=== PATIENT | female | born 1995 | race African-American/Black ===

== ENCOUNTER 2019-04-09 03:36 | Emergency (ER) | payer SELFPAY ==
--- NOTE | 2019-04-09 06:26 | ER Document Report ---
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 Pt is 5 months with first . Pt just arrived in from [place] after an 8 hours car ride. No redness, swelling, heat noted to right calf. Pulses strong and intact, sensation equal bilaterally. Pt able to move feet and toes without difficulty. Pt denies hx of blood clots. Pt reports hx of depression and schizophrenia. Pt ambulatory without difficulty to triage, aaox4, speaks in clear and complete sentences. Great aunt at side. Pt in NAD. MY HPI: Patient is denying any respiratory distress or chest pain. Patient voices she is G1, P0, currently 5 months . Denies abdominal pain, vaginal bleeding or discharge. Denies dysuria. She is noticed some swelling to the right lower extremity and pain in her right calf. States she "googled it" and would like evaluation for a blood clot. - Related Data Allergies/Adverse Reactions: No Known Allergies Allergy (Unverified 04/09/19 04:01) Past Medical History - General Information source: Patient, Relative - Social History Smoking Status: Never Smoker Frequency of alcohol use: None Drug Abuse: None Family History: Reviewed & Not Pertinent Patient has suicidal ideation: No Patient has homicidal ideation: No Review of Systems - Review of Systems Constitutional: denies: Fever EENT: No symptoms reported Cardiovascular: No symptoms reported Respiratory: No symptoms reported Gastrointestinal: No symptoms reported Genitourinary: No symptoms reported Female Genitourinary: No symptoms reported Musculoskeletal: See HPI Skin: See HPI Hematologic/Lymphatic: See HPI Neurological/Psychological: No symptoms reported Physical Exam - Vital signs Vitals: Temp Pulse Resp BP Pulse Ox 97.8 F 86 18 117/70 100 04/09/19 03:55 04/09/19 03:55 04/09/19 03:55 04/09/19 03:55 04/09/19 03:55 - Notes Notes: GENERAL: Alert, interacts well. No acute distress. HEAD: Normocephalic, atraumatic. EYES: Pupils equal, round, and reactive to light. Extraocular movements intact. ENT: Oral mucosa moist, tongue midline. NECK: Full range of motion. Supple. Trachea midline. LUNGS: Clear to auscultation bilaterally, no wheezes, rales, or rhonchi. No respiratory distress. HEART: Regular rate and rhythm. No murmur ABDOMEN: Soft, non-tender. Non-distended. Bowel sounds present in all 4 quadrants. EXTREMITIES: Moves all 4 extremities spontaneously. normal radial and dorsalis pedis pulses bilaterally. No cyanosis. Generalized pain in right calf, pain upon flexion extension of right ankle. Minor swelling noted in right lower extremity compared to left. BACK: no cervical, thoracic, lumbar midline tenderness. No saddle anesthesia, normal distal neurovascular exam. NEUROLOGICAL: Alert and oriented x3. Normal speech. cranial nerves II through XII grossly intact PSYCH: Normal affect, normal mood. SKIN: Warm, dry, normal turgor. Course - Re-evaluation Re-evalutation: 04/09/19 06:24 I discussed with patient and family at bedside my recommendation for venous Doppler. Unfortunately we do not have access to venous Doppler at this time. I discussed with family outpatient orders for venous Doppler or if they would like to stay in the emergency department to get a venous Doppler at approximately 8:00 this morning. Patient voices she would like to stay in the emergency department until the venous Doppler can be performed. Patient was provided with the call light and blankets. Venous Doppler ordered. 04/09/19 07:52 Pt. care and report transferred to Kai Hollingsworth NP at end of shift for venous doppler results. - Vital Signs Vital signs: Temp Pulse Resp BP Pulse Ox 97.8 F 86 18 117/70 100 04/09/19 03:55 04/09/19 03:55 04/09/19 03:55 04/09/19 03:55 04/09/19 03:55 Discharge - Discharge Clinical Impression: Right calf pain Condition: Stable Disposition: OTHER Referrals: POPPY WILCOX MD [Primary Care Provider] - Follow up as needed
--- NOTE | 2019-04-09 10:54 | RADIOLOGY REPORT (SQ) ---
EXAM DESCRIPTION: VENOUS UNILATERAL LOWER COMPLETED DATE/TIME: 04/09/2019 10:22 am REASON FOR STUDY: right lower leg swelling/calf pain COMPARISON: None. TECHNIQUE: Dynamic and static nicole scale and color images acquired of the right leg venous system. S elected spectral images acquired with additional compression and augmentation maneuvers. The contrala teral common femoral vein and saphenofemoral junction were also imaged. Images stored on PACS. LIMITATIONS: None. FINDINGS: COMMON FEMORAL: Normal phasicity, compression and augmentation. No visualized echogenic ma terial on nicole scale. No defects on color images. FEMORAL: Normal compression and augmentation. No visualized echogenic material on nicole scale. No defe cts on color images. POPLITEAL: Normal compression, augmentation. No visualized echogenic material on nicole scale. No defec ts on color images. CALF VESSELS: Normal compression, augmentation. No visualized echogenic material on nicole scale. No de fects on color images. GSV and SSV: Normal compression, augmentation. No visualized echogenic material on nicole scale. No def ects on color images. ANY DEEP VENOUS INSUFFICIENCY: Not evaluated. ANY EVIDENCE OF POPLITEAL CYST: No. OTHER: No other significant finding. CONTRALATERAL COMMON FEMORAL VEIN AND SAPHENOFEMORAL JUNCTION: Normal phasicity, compression and augmentation. No visualized echogenic material on nicole scale. No de fects on color images. IMPRESSION: NO EVIDENCE DVT OR SVT IN THE RIGHT LEG. TECHNICAL DOCUMENTATION: JOB ID: [id number] [employer]- All Rights Reserved Reading location - IP/workstation name: [email or web address]
[2019-04-09 11:41] VITALS: BP 134/73
== END 2019-04-09 11:41 | disposition other institution (70) ==
LOC: ER 03:36
DX: O26.892 Other specified pregnancy related conditions, second trimester (principal); M79.604 Pain in right leg; M79.89 Other specified soft tissue disorders; Z3A.20 20 weeks gestation of pregnancy
CPT/HCPCS: 93971; 99283

== ENCOUNTER → 2019-04-23 | Outpatient (CLI) | payer MEDICARE ==
--- NOTE | 2019-04-23 16:24 | RADIOLOGY REPORT (SQ) ---
EXAM DESCRIPTION: U/S OB 14+ TRNABD 1GES W/O DOP COMPLETED DATE/TIME: 04/23/2019 4:08 pm REASON FOR STUDY: Z34.02 ENCNTR FOR SUPRVSN OF NORMAL FIRST PREG, SECOND TRIMESTER Z34.02 ENCNTR FO R SUPRVSN OF NORMAL FIRST PREG, SECOND TRIME COMPARISON: 04/17/2019. TECHNIQUE: Static and Dynamic grayscale imaging performed of gravid uterus using transabdominal appr oac. Additional selected color Doppler and spectral images recorded. All stored on PACS. LIMITATIONS: None. FINDINGS: FETUSES SEEN:1 EGA: 24 week 4 day. Calculated using BPD,FL,HC,AC documented on images. No discrepancy with clinical dates. SWEETIE: 08/09/2019. EFW: 726 grams PERCENTILE: 49 CHARLOTTE: Largest pocket 5.8 cm. PLACENTA: Posterior. PRESENTATION: Cephalic. ANATOMY: HEART RATE: 149 beats per minute. FOUR CHAMBER HEART: Visualized. THREE VESSEL CORD: Yes. CORD INSERTION: Visualized. KIDNEYS AND BLADDER: Visualized. Appear normal. STOMACH: Visualized. Appears normal. SPINE: Normal as visualized. BRAIN AND LATERAL VENTRICLES: Visualized. Appear normal. OTHER: No other significant finding. MATERNAL ADNEXA: Maternal ovaries not visualized. CERVICAL LENGTH: 3.1 cm. Closed. OTHER: No other significant finding. IMPRESSION: LIVING INTRAUTERINE . ESTIMATED GESTATIONAL AGE 24 WEEK 4 DAY. NO VISUALIZED ANOMALIES. Trimester of : Second trimester - 13 weeks 1 day to 27 weeks 6 days. TECHNICAL DOCUMENTATION: JOB ID: [id number] [employer]- All Rights Reserved Reading location - IP/workstation name: [email or web address]
== END ==
LOC: RAD 15:02
PROVIDERS: ATTEND Midwife
DX: Z34.02 Encounter for supervision of normal first pregnancy, second trimester (principal)
CPT/HCPCS: 76805

== ENCOUNTER 2019-04-26 18:47 | Outpatient (CLI) | payer MEDICARE ==
[2019-04-26 19:30] LABS: APPEARANCE,URINE CLEAR; BILIRUBIN,URINE NEGATIVE (NEGATIVE); COLOR,URINE YELLOW; GLUCOSE, URINE NEGATIVE (NEGATIVE); KETONES,URINE NEGATIVE (NEGATIVE); LEUKOCYTE ESTERASE,URINE TRACE (NEGATIVE); NITRITE,URINE NEGATIVE (NEGATIVE); PROTEIN,URINE NEGATIVE (NEGATIVE); UROBILINOGEN,URINE NEGATIVE mg/dL (<2.0)
[2019-04-26 19:46] LABS: URINE AMPHETAMINES SCREEN NEGATIVE; URINE BARBITURATES SCREEN NEGATIVE; URINE BENZODIAZEPINES SCREEN NEGATIVE; URINE COCAINE SCREEN NEGATIVE; URINE MARIJUANA (THC) SCREEN NEGATIVE; URINE METHADONE SCREEN NEGATIVE; URINE PHENCYCLIDINE SCREEN NEGATIVE
[2019-04-26 19:53] LABS: BACTERIA (WET MOUNT) 4+ BACTERIA SEEN; EPITHELIALS (WET MOUNT) 4+ EPITHELIALS SEEN; RBCS (WET MOUNT) NO RBCS SEEN; T.VAGINALIS (WET MOUNT) NO TRICHOMONAS SEEN; WBCS (WET MOUNT) 4+ WBCS SEEN; YEAST (WET MOUNT) NO YEAST SEEN
[2019-04-26 21:04] LABS: CHLAM PCR NOT DETECTED (NOT DETECT)
--- NOTE | 2019-04-27 04:44 | RADIOLOGY REPORT (SQ) ---
EXAM DESCRIPTION: US LIMITED COMPLETED DATE/TME: 04/26/2019 00:00 CLINICAL HISTORY: 24 years, Female, cervical length, pres, placenta COMPARISON: 04/23/19 TECHNIQUE: Transabdominal pelvic ultrasound. LIMITATIONS: None. FINDINGS: A single live intrauterine is identified. The fetus is in the cephalic position. The cervix is closed and measures 3.2 cm in length. The CHARLOTTE is 12.7 cm. The heart rate is 160 bpm. Placenta is fundal with no evidence of placental abruption. IMPRESSION: Single live intrauterine , as described above. copyright 2010 [employer]- All Rights Reserved
== END 2019-04-26 23:38 | disposition home or self-care (01) ==
LOC: LC 18:47
PROVIDERS: ATTEND Student in an Organized Health Care Education/Training Program
PROC: 4A1HXCZ Monitoring of Products of Conception, Cardiac Rate, External Approach (ICD-10-PCS; principal; 2019-04-26)
DX: O47.02 False labor before 37 completed weeks of gestation, second trimester (principal); Z3A.24 24 weeks gestation of pregnancy
CPT/HCPCS: 76815; 80307; 81001; 87210; 87491; 87591

== ENCOUNTER 2019-05-09 15:57 | Emergency (ER) | payer MEDICARE ==
--- NOTE | 2019-05-09 16:09 | ER Document Report ---
ED Medical Screen (RME) - General Chief Complaint: Shortness Of Breath Stated Complaint: SHORTNESS OF BREATH Time Seen by Provider: 05/09/19 16:05 Primary Care Provider: ADRIANNA MORALES CNM [Primary Care Provider] - Follow up as needed Mode of Arrival: Ambulatory Information source: Patient Notes: 24-year-old female presented to ED for complaint of shortness of breath for at least a week. She states she is 28 weeks with her first and last child. She states she she moved from [place] to here on 10 April and came to the emergency room that day for swelling of her legs. She states she was negative for DVTs at the time. She said she saw the MANAGER CUSTOM on Friday and they told her that they were going to recommend her to a pool lifeguard. Patient states she does have a history of diabetes. She is not on any insulin or any medications. She is a poor historian I have greeted and performed a rapid initial assessment of this patient. A comprehensive ED assessment and evaluation of the patient, analysis of test results and completion of medical decision making process will be conducted by an additional ED providers. TRAVEL OUTSIDE OF THE [place] IN LAST 30 DAYS: No - Related Data Allergies/Adverse Reactions: No Known Allergies Allergy (Verified 04/26/19 19:08) Physical Exam - Vital signs Vitals: Temp Pulse Resp BP Pulse Ox 97.7 F 103 H 22 H 135/74 H 100 05/09/19 16:00 05/09/19 16:00 05/09/19 16:00 05/09/19 16:00 05/09/19 16:00 Course - Vital Signs Vital signs: Temp Pulse Resp BP Pulse Ox 97.7 F 103 H 22 H 135/74 H 100 05/09/19 16:00 05/09/19 16:00 05/09/19 16:00 05/09/19 16:00 05/09/19 16:00 Doctor's Discharge - Discharge Referrals: ADRIANNA MORALES CNM [Primary Care Provider] - Follow up as needed
[2019-05-09] MEDS ORDERED: IPRATROPIUM/ALBUTEROL 0.5-2.5 MG/3 ML AMPUL NEB ONE (16:42)
--- NOTE | 2019-05-09 16:44 | ER Document Report ---
ED Respiratory Problem - General Chief Complaint: Shortness Of Breath Stated Complaint: SHORTNESS OF BREATH Time Seen by Provider: 05/09/19 16:05 Primary Care Provider: ADRIANNA MORALES CNM [NO LOCAL MD] - Follow up in 3-5 days Mode of Arrival: Ambulatory Notes: Patient is a 24-year-old female who presents emergency department with a chief complaint of shortness of breath. Patient states that to get days ago she felt short of breath. She was seen by her VP OF DIGITAL MARKETING and was referred out to the ct rdiologist. She has not seen a dividend deposit voucher clerk as of yet. She denies any cough, wheezing, or fever. Patient states that she just moved here from [place] last month she was on a long car ride, but stopped frequently to urinate. Patient is currently 28 weeks with her first child. Patient states that she used to have breathing treatments when her mother was alive. Her mother in 2013. Patient has not had any breathing treatments since then. TRAVEL OUTSIDE OF THE [place] IN LAST 30 DAYS: No - Related Data Allergies/Adverse Reactions: No Known Allergies Allergy (Verified 05/09/19 16:06) Home Medications: Past Medical History - General Information source: Patient - Social History Smoking Status: Never Smoker Chew tobacco use (# tins/day): No Frequency of alcohol use: None Drug Abuse: None Family History: Reviewed & Not Pertinent Patient has suicidal ideation: No Patient has homicidal ideation: No Review of Systems - Review of Systems Notes: REVIEW OF SYSTEMS: CONSTITUTIONAL : Denies recent illness. Denies recent unintentional weight loss. Denies fever, chills, or sweats. EENT: Denies eye, ear, throat, or mouth pain, discharge, or symptoms. Denies nasal or sinus congestion. CARDIOVASCULAR: See HPI. RESPIRATORY: See HPI. GASTROINTESTINAL: Denies nausea, vomiting, and diarrhea. Denies abdominal pain. Denies constipation. GENITOURINARY: Denies difficulty urinating, burning, blood in urine, urgency or frequency. MUSCULOSKELETAL: Denies neck and back pain. Denies joint pain or swelling. SKIN: Denies rash, itchiness, or lesions HEMATOLOGIC : Denies easy bruising or bleeding. LYMPHATIC: Denies swollen, painful, enlarged glands. NEUROLOGICAL: Denies no numbness or tingling denies weakness. Denies headache. Denies altered mental status. Denies alteration in speech. PSYCHIATRIC: Denies stress, anxiety, alteration in sleep patterns, or depression. All other systems reviewed and negative. Physical Exam - Vital signs Vitals: Temp Pulse Resp BP Pulse Ox 97.7 F 103 H 22 H 135/74 H 100 05/09/19 16:00 05/09/19 16:00 05/09/19 16:00 05/09/19 16:00 05/09/19 16:00 - Notes Notes: PHYSICAL EXAMINATION: GENERAL: Appears well, healthy, well-nourished, no acute distress. HEAD: Normocephalic, atraumatic. EYES: PERRL, conjunctiva normal, all extraocular movements intact, sclera non icteric ENT: Moist mucous membranes. NECK: Supple, no noticeable swelling, redness, rash. Normal range of motion. LUNGS: Very faint wheezes noted to the bases. Diminished breath sounds througho ut. CARDIOVASCULAR: S1-S2, regular rate, regular rhythm. Radial pulses 2+, normal. ABDOMEN: Normoactive bowel sounds. Soft, nontender, no guarding, no rebound tenderness, and no masses palpated. EXTREMITIES: Normal strength and range of motion, no pitting or edema. No cyanosis. NEUROLOGICAL: Moves all extremities upon command. Strength 5/5 in all extremities. PSYCH: Normal mood, normal affect. SKIN: Warm, dry. No rash, lesions, ulcerations noted. Normal skin turgor. Course - Re-evaluation Re-evalutation: 05/09/19 16:45 Due to the patient being , I called Dr. Amador to bedside to evaluate the patient. She is in agreement that the patient will receive 2 DuoNeb treatments. With a very low suspicion for a pulmonary emboli, as the patient had gotten out of her car multiple times on the way over here from [place]. 05/09/19 18:26 Patient's hematology shows anemia with a hemoglobin of 10.8 and hematocrit of 33.6. Her quantitative hCG is 4264, consistent with her current . Patient's urine shows a moderate amount of leukocytes, but she also has many squamous cell epithelial cells noted on her urinalysis. This may be a is a contaminated sample. The patient's urine will be sent for culture. I asked if the patient had any dysuria or vaginal discharge. She denies any at this time. I told her that her urine will be sent for culture and if it comes back positive, she will be called and started on antibiotics. I looked at her previous visit and no urine culture was sent. Patient has a visit with her VP OF DIGITAL MARKETING on in 3 days. She will follow-up with them. She will also be sent home with an albuterol inhaler. Her lung sounds are clear and states that she feels much better after receiving DuoNeb treatments. EKG does not show right heart strain. Follow-up precautions were given. Verbal discharge instructions were given to the patient. They verbalized understanding. They are stable for discharge. - Vital Signs Vital signs: Temp Pulse Resp BP Pulse Ox 98.3 F 106 H 18 131/75 H 100 05/09/19 18:58 05/09/19 18:58 05/09/19 18:58 05/09/19 18:58 05/09/19 18:58 - Laboratory Result Diagrams: 05/09/19 16:24 05/09/19 16:24 Laboratory results interpreted by me: 05/09/19 05/09/19 05/09/19 16:24 16:24 16:24 Hgb 10.8 L Hct 33.6 L MCV 78 L MCH 24.9 L RDW 14.6 H Total Bilirubin 0.1 L Beta HCG, Quant 4264.90 H Leukocyte Esterase Rfl MODERATE H Discharge - Discharge Clinical Impression: Shortness of breath Chest pain Qualifiers: Chest pain type: unspecified Qualified Code(s): R07.9 - Chest pain, unspecified Condition: Stable Disposition: HOME, SELF-CARE Additional Instructions: You are seen today in the emergency department for chest pain and shortness of breath. Your chest pain and shortness of breath is most likely due to possible asthma. Your shortness of breath started when the weather changed, which is, and in people with asthma. Your blood work appears normal. You are being prescribed an inhaler. You can take 1 to 2 puffs every 4-6 hours as needed for shortness of breath. Please make sure you use a spacer with this inhaler. Please follow-up with your VP OF DIGITAL MARKETING in regards to this visit. Please also follow- up with the dividend deposit voucher clerk. Please bring this paperwork to the dividend deposit voucher clerk. Prescriptions: Albuterol Sulfate [Proair HFA Inhalation Aerosol 8.5 gm MDI] 2 puff IH Q4HP PRN #1 mdi PRN Reason: Referrals: ADRIANNA MORALES CNM [NO LOCAL MD] - Follow up in 3-5 days
[2019-05-09 17:02] LABS: ABSOLUTE LYMPHOCYTES (AUTO) 1.5 10^3/uL (0.5-4.7); ABSOLUTE MONOCYTES (AUTO) 0.4 10^3/uL (0.1-1.4); ABSOLUTE NEUT (AUTO) 6.1 10^3/uL (1.7-8.2); BASOPHILS % (AUTO) 0.3 % (0-2); EOSINOPHILS % (AUTO) 0.4 % (0-6); HEMATOCRIT 33.6 % (36.0-47.0); HEMOGLOBIN 10.8 g/dL (12.0-15.5); LYMPHOCYTES % (AUTO) 18.6 % (13-45); MEAN CORPUSCULAR HEMOGLOBIN 24.9 pg (27.0-33.4); MEAN CORPUSCULAR HGB CONC 32.1 g/dL (32.0-36.0); MEAN CORPUSCULAR VOLUME 78 fl (80-97); PLATELET COUNT 291 10^3/uL (150-450); RED BLOOD COUNT 4.33 10^6/uL (3.72-5.28); RED CELL DISTRIBUTION WIDTH 14.6 % (11.5-14.0); SEGMENTED NEUTROPHILS % (AUTO) 75.7 % (42-78); TOTAL CELLS COUNTED % (AUTO) 100 %; WHITE BLOOD COUNT 8.1 10^3/uL (4.0-10.5)
[2019-05-09 17:14] LABS: APPEARANCE,URINE SLIGHTLY-CLOUDY; BILIRUBIN,URINE NEGATIVE (NEGATIVE); COLOR,URINE YELLOW; GLUCOSE, URINE NEGATIVE (NEGATIVE); KETONES,URINE NEGATIVE (NEGATIVE); PROTEIN,URINE NEGATIVE (NEGATIVE); URINE SPECIFIC GRAVITY 1.021; UROBILINOGEN,URINE NEGATIVE mg/dL (<2.0)
[2019-05-09 17:27] LABS: ALBUMIN 3.7 g/dL (3.5-5.0); ALKALINE PHOSPHATASE 48 U/L (38-126); ANION GAP 8 (5-19); ASPARTATE AMINO TRANSFERASE 16 U/L (14-36); BILIRUBIN,DIRECT 0.1 mg/dL (0.0-0.4); BILIRUBIN,TOTAL 0.1 mg/dL (0.2-1.3); BLOOD UREA NITROGEN 8 mg/dL (7-20); CARBON DIOXIDE 23 mmol/L (22-30); CHLORIDE 106 mmol/L (98-107); GLUCOSE 76 mg/dL (75-110); POTASSIUM 4.4 mmol/L (3.6-5.0)
[2019-05-09 19:00] VITALS: BP 131/75
--- NOTE | 2019-05-09 21:40 | EKG REPORT ---
SEVERITY:- OTHERWISE NORMAL ECG - SINUS RHYTHM ST ELEVATION NORMAL EARLY REPOLARIZATION : Confirmed by: Austin Murrieta MD 09-May-2019 21:39:58
== END 2019-05-09 18:58 | disposition home or self-care (01) ==
LOC: ER 15:57
DX: O26.93 Pregnancy related conditions, unspecified, third trimester (principal); R06.02 Shortness of breath; R07.9 Chest pain, unspecified; Z3A.28 28 weeks gestation of pregnancy
CPT/HCPCS: 93005; 94640; 99285; 36415; 87086; 84702; 85025; 80053; 81001; 93010; A9270; J7620

== ENCOUNTER 2019-05-14 21:11 | Outpatient (CLI) | payer MEDICARE, MEDICAID ==
[2019-05-14 21:54] LABS: APPEARANCE,URINE CLOUDY; BILIRUBIN,URINE NEGATIVE (NEGATIVE); COLOR,URINE YELLOW; GLUCOSE, URINE NEGATIVE (NEGATIVE); KETONES,URINE TRACE mg/dL (NEGATIVE); LEUKOCYTE ESTERASE,URINE LARGE (NEGATIVE); NITRITE,URINE NEGATIVE (NEGATIVE); PROTEIN,URINE 30 mg/dL (NEGATIVE); URINE SPECIFIC GRAVITY 1.032; UROBILINOGEN,URINE NEGATIVE mg/dL (<2.0)
[2019-05-14] MEDS ORDERED: CEFTRIAXONE INJ 1000 MG VIAL IM ONE (22:02)
[2019-05-14] MEDS ORDERED: LIDOCAINE 1% INJ-PF (10 MG/ML) 30 ML SDV INJ ONE (22:02)
[2019-05-14] MEDS ORDERED: CEFTRIAXONE INJ 1000 MG VIAL ONE (22:04)
[2019-05-14] MEDS ORDERED: LIDOCAINE 1% INJ-PF (10 MG/ML) 30 ML SDV ONE (22:04)
[2019-05-14 22:10] LABS: URINE AMPHETAMINES SCREEN NEGATIVE; URINE BARBITURATES SCREEN NEGATIVE; URINE BENZODIAZEPINES SCREEN NEGATIVE; URINE COCAINE SCREEN NEGATIVE; URINE MARIJUANA (THC) SCREEN NEGATIVE; URINE METHADONE SCREEN NEGATIVE; URINE PHENCYCLIDINE SCREEN NEGATIVE
== END 2019-05-14 22:25 | disposition home or self-care (01) ==
LOC: LC 21:11
PROVIDERS: ATTEND Obstetrics & Gynecology
DX: O47.02 False labor before 37 completed weeks of gestation, second trimester (principal); Z3A.27 27 weeks gestation of pregnancy
CPT/HCPCS: 81001; 80307; J3490; J0696

== ENCOUNTER 2019-05-21 18:36 | Outpatient (CLI) | payer MEDICARE, MEDICAID ==
[2019-05-21 19:59] LABS: URINE AMPHETAMINES SCREEN NEGATIVE; URINE BARBITURATES SCREEN NEGATIVE; URINE BENZODIAZEPINES SCREEN NEGATIVE; URINE COCAINE SCREEN NEGATIVE; URINE MARIJUANA (THC) SCREEN NEGATIVE; URINE METHADONE SCREEN NEGATIVE; URINE PHENCYCLIDINE SCREEN NEGATIVE
[2019-05-21 20:13] LABS: APPEARANCE,URINE CLEAR; BILIRUBIN,URINE NEGATIVE (NEGATIVE); COLOR,URINE YELLOW; GLUCOSE, URINE NEGATIVE (NEGATIVE); KETONES,URINE NEGATIVE (NEGATIVE); LEUKOCYTE ESTERASE,URINE NEGATIVE (NEGATIVE); NITRITE,URINE NEGATIVE (NEGATIVE); PROTEIN,URINE NEGATIVE (NEGATIVE); URINE SPECIFIC GRAVITY 1.021; UROBILINOGEN,URINE NEGATIVE mg/dL (<2.0)
== END 2019-05-21 21:00 | disposition home or self-care (01) ==
LOC: LC 18:36
PROVIDERS: ATTEND Obstetrics & Gynecology Gynecology
PROC: 4A1HXCZ Monitoring of Products of Conception, Cardiac Rate, External Approach (ICD-10-PCS; principal; 2019-05-21)
DX: O47.03 False labor before 37 completed weeks of gestation, third trimester (principal); Z3A.28 28 weeks gestation of pregnancy
CPT/HCPCS: 59899; 81005; 80307; Q0114

== ENCOUNTER 2019-06-25 22:30 | Outpatient (CLI) | payer MEDICARE, MEDICAID ==
[2019-06-25 23:28] LABS: APPEARANCE,URINE SLIGHTLY-CLOUDY; BILIRUBIN,URINE NEGATIVE (NEGATIVE); COLOR,URINE YELLOW; GLUCOSE, URINE NEGATIVE (NEGATIVE); KETONES,URINE NEGATIVE (NEGATIVE); LEUKOCYTE ESTERASE,URINE LARGE (NEGATIVE); NITRITE,URINE NEGATIVE (NEGATIVE); PROTEIN,URINE 30 mg/dL (NEGATIVE); URINE SPECIFIC GRAVITY 1.027; UROBILINOGEN,URINE NEGATIVE mg/dL (<2.0)
[2019-06-25 23:45] LABS: URINE AMPHETAMINES SCREEN NEGATIVE; URINE BARBITURATES SCREEN NEGATIVE; URINE BENZODIAZEPINES SCREEN NEGATIVE; URINE COCAINE SCREEN NEGATIVE; URINE MARIJUANA (THC) SCREEN NEGATIVE; URINE METHADONE SCREEN NEGATIVE; URINE PHENCYCLIDINE SCREEN NEGATIVE
[2019-06-26] MEDS ORDERED: LIDOCAINE 1% INJ-PF (10 MG/ML) 30 ML SDV INJ ONE (00:06)
[2019-06-26] MEDS ORDERED: CEFTRIAXONE INJ 1000 MG VIAL IM ONE (00:06)
[2019-06-26] MEDS ORDERED: LIDOCAINE 1% INJ-PF (10 MG/ML) 30 ML SDV ONE (00:38)
[2019-06-26] MEDS ORDERED: CEFTRIAXONE INJ 1000 MG VIAL ONE (00:38)
== END 2019-06-26 01:00 | disposition home or self-care (01) ==
LOC: LC 22:30
PROVIDERS: ATTEND Student in an Organized Health Care Education/Training Program
PROC: 4A1HXCZ Monitoring of Products of Conception, Cardiac Rate, External Approach (ICD-10-PCS; principal; 2019-06-25)
DX: O26.893 Other specified pregnancy related conditions, third trimester (principal); Z3A.33 33 weeks gestation of pregnancy
CPT/HCPCS: 87086; 81001; 80307; 59025; J3490; J0696

== ENCOUNTER 2019-08-01 11:43 | Outpatient (CLI) | payer MEDICARE, MEDICAID ==
[2019-08-01 12:31] LABS: APPEARANCE,URINE CLOUDY; BILIRUBIN,URINE NEGATIVE (NEGATIVE); COLOR,URINE YELLOW; GLUCOSE, URINE NEGATIVE (NEGATIVE); KETONES,URINE NEGATIVE (NEGATIVE); LEUKOCYTE ESTERASE,URINE LARGE (NEGATIVE); NITRITE,URINE NEGATIVE (NEGATIVE); PROTEIN,URINE 30 mg/dL (NEGATIVE); URINE SPECIFIC GRAVITY 1.024; UROBILINOGEN,URINE NEGATIVE mg/dL (<2.0)
[2019-08-01 12:42] LABS: URINE AMPHETAMINES SCREEN NEGATIVE; URINE BARBITURATES SCREEN NEGATIVE; URINE BENZODIAZEPINES SCREEN NEGATIVE; URINE COCAINE SCREEN NEGATIVE; URINE MARIJUANA (THC) SCREEN NEGATIVE; URINE METHADONE SCREEN NEGATIVE; URINE PHENCYCLIDINE SCREEN NEGATIVE
--- NOTE | 2019-08-01 13:01 | Non Stress Test Report ---
Non Stress Test Datetime Report Generated by CPN: 08/01/2019 13:00 DEMOGRAPHIC EGA NST: 38.5 INDICATION Indication for Study (NST) Other: ctx VITAL SIGNS Temperature - NST: 98.0 MONITORING Monitor Explained: Monitor Explained; Test Explained; Patient Verbalized Understanding Time on Monitor: 08/01/2019 11:56 Time off Monitor: 08/01/2019 12:59 NST Duration: 63 NST INTERVENTIONS NST Interventions: PO Hydration; Reposition Patient Physician Notified NST: Dr Melchor BABY A Movement : Present Contraction Frequency : irregular FHR Baseline : 145 Accelerations : 15X15 Decelerations : None Variability : Moderate 6-25bpm NST Review: Meets Criteria for Reactive NST NST Review and Verified By : Kyler Guajardo RN NST Results: Reactive NST REPORT Report Trigger: Send Report
== END 2019-08-01 14:20 | disposition home or self-care (01) ==
LOC: LC 11:43
PROVIDERS: ATTEND Student in an Organized Health Care Education/Training Program
PROC: 4A1HXCZ Monitoring of Products of Conception, Cardiac Rate, External Approach (ICD-10-PCS; principal; 2019-08-01)
DX: O47.1 False labor at or after 37 completed weeks of gestation (principal); O99.283 Endocrine, nutritional and metabolic diseases complicating pregnancy, third trimester; E86.0 Dehydration; Z3A.38 38 weeks gestation of pregnancy
CPT/HCPCS: 59025; 80307; 81001

== ENCOUNTER 2019-08-08 15:07 | Outpatient (CLI) | payer MEDICARE, MEDICAID ==
[2019-08-08 16:47] LABS: APPEARANCE,URINE SLIGHTLY-CLOUDY; BILIRUBIN,URINE NEGATIVE (NEGATIVE); COLOR,URINE YELLOW; GLUCOSE, URINE NEGATIVE (NEGATIVE); KETONES,URINE NEGATIVE (NEGATIVE); LEUKOCYTE ESTERASE,URINE SMALL (NEGATIVE); NITRITE,URINE NEGATIVE (NEGATIVE); PROTEIN,URINE NEGATIVE (NEGATIVE); URINE SPECIFIC GRAVITY 1.026; UROBILINOGEN,URINE NEGATIVE mg/dL (<2.0)
[2019-08-08 17:02] LABS: URINE AMPHETAMINES SCREEN NEGATIVE; URINE BARBITURATES SCREEN NEGATIVE; URINE BENZODIAZEPINES SCREEN NEGATIVE; URINE COCAINE SCREEN NEGATIVE; URINE MARIJUANA (THC) SCREEN NEGATIVE; URINE METHADONE SCREEN NEGATIVE; URINE PHENCYCLIDINE SCREEN NEGATIVE
--- NOTE | 2019-08-08 17:26 | Non Stress Test Report ---
Non Stress Test Datetime Report Generated by CPN: 08/08/2019 17:26 DEMOGRAPHIC EGA NST: 39.5 INDICATION Indication for Study (NST) Other: ctx MONITORING Monitor Explained: Monitor Explained; Test Explained; Patient Verbalized Understanding Time on Monitor: 08/08/2019 15:22 Time off Monitor: 08/08/2019 17:00 NST Duration: 98 NST INTERVENTIONS NST Interventions: None Physician Notified NST: Dr Piedra BABY A: [id number] BABY A Movement : Present Contraction Frequency : 0 FHR Baseline : 140 Accelerations : 15X15 Decelerations : None Variability : Moderate 6-25bpm NST Review: Meets Criteria for Reactive NST NST Review and Verified By : Gumaro Sasala RN NST Results: Reactive NST REPORT Report Trigger: Send Report
== END 2019-08-08 17:32 | disposition home or self-care (01) ==
LOC: LC 15:07
PROVIDERS: ATTEND Obstetrics & Gynecology
PROC: 4A1HXCZ Monitoring of Products of Conception, Cardiac Rate, External Approach (ICD-10-PCS; principal; 2019-08-08)
DX: O47.1 False labor at or after 37 completed weeks of gestation (principal); Z3A.39 39 weeks gestation of pregnancy
CPT/HCPCS: 59025; 80307; 81005; 84112

== ENCOUNTER 2019-08-13 15:24 | Inpatient (IN) | payer MEDICARE, MEDICAID ==
[2019-08-13] MEDS ORDERED: RINGERS SOLUTION,LACTATED 1,000 ML IV ONE (15:56)
[2019-08-13] MEDS ORDERED: RINGERS SOLUTION,LACTATED 1,000 ML IV PRN (16:27)
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
[2019-08-13 18:21] LABS: ABSOLUTE LYMPHOCYTES (AUTO) 1.4 10^3/uL (0.5-4.7); ABSOLUTE MONOCYTES (AUTO) 0.4 10^3/uL (0.1-1.4); ABSOLUTE NEUT (AUTO) 6.9 10^3/uL (1.7-8.2); BASOPHILS % (AUTO) 0.6 % (0-2); EOSINOPHILS % (AUTO) 0.4 % (0-6); HEMATOCRIT 34.2 % (36.0-47.0); HEMOGLOBIN 11.3 g/dL (12.0-15.5); LYMPHOCYTES % (AUTO) 16.2 % (13-45); MEAN CORPUSCULAR HEMOGLOBIN 25.7 pg (27.0-33.4); MEAN CORPUSCULAR VOLUME 78 fl (80-97); MONOCYTES % (AUTO) 5.1 % (3-13); PLATELET COUNT 278 10^3/uL (150-450); SEGMENTED NEUTROPHILS % (AUTO) 77.7 % (42-78); TOTAL CELLS COUNTED % (AUTO) 100 %; WHITE BLOOD COUNT 8.8 10^3/uL (4.0-10.5)
[2019-08-13] MEDS ORDERED: OXYTOCIN/NORMAL SALINE 20 UNIT/1,000 ML RTUINJ IV PRN (18:29)
[2019-08-13 18:50] LABS: APPEARANCE,URINE CLEAR; BILIRUBIN,URINE NEGATIVE (NEGATIVE); COLOR,URINE STRAW; GLUCOSE, URINE NEGATIVE (NEGATIVE); KETONES,URINE NEGATIVE (NEGATIVE); LEUKOCYTE ESTERASE,URINE NEGATIVE (NEGATIVE); NITRITE,URINE NEGATIVE (NEGATIVE); PROTEIN,URINE NEGATIVE (NEGATIVE); URINE SPECIFIC GRAVITY 1.005; UROBILINOGEN,URINE NEGATIVE mg/dL (<2.0)
[2019-08-13 19:09] LABS: URINE AMPHETAMINES SCREEN NEGATIVE; URINE BARBITURATES SCREEN NEGATIVE; URINE BENZODIAZEPINES SCREEN NEGATIVE; URINE COCAINE SCREEN NEGATIVE; URINE MARIJUANA (THC) SCREEN NEGATIVE; URINE METHADONE SCREEN NEGATIVE; URINE PHENCYCLIDINE SCREEN NEGATIVE
[2019-08-13] MEDS ORDERED: OXYTOCIN/NORMAL SALINE 20 UNIT/1,000 ML RTUINJ ONE ×2 (19:21→19:22)
[2019-08-13] MEDS ORDERED: MISOPROSTOL 0.2 MG TABLET ONE (19:22)
[2019-08-13] MEDS ORDERED: LIDOCAINE 1% INJ-PF (10 MG/ML) 30 ML SDV ONE (19:22)
[2019-08-13] MEDS ORDERED: OXYTOCIN 10 UNIT/ML VIAL ONE (19:22)
[2019-08-13] MEDS ORDERED: ACETAMINOPHEN 1,000 MG/100 ML RTUPB IV PRN (21:05)
[2019-08-13] MEDS ORDERED: ACETAMINOPHEN 1,000 MG/100 ML RTUPB IV ONE (21:10)
[2019-08-13] MEDS ORDERED: ZOLPIDEM TARTRATE 5 MG TABLET ONE ×2 (22:12→22:17)
[2019-08-14] MEDS ORDERED: MORPHINE SULFATE 10 MG/ML INJ IV PRN (01:59)
[2019-08-14] MEDS ORDERED: MORPHINE SULFATE 10 MG/ML INJ ONE (02:01)
[2019-08-14] MEDS ORDERED: OXYTOCIN 10 UNIT/ML VIAL ONE (12:38)
[2019-08-14] MEDS ORDERED: METHYLERGONOVINE MALEATE INJ/PF 0.2 MG/1 ML AMPULE ONE (12:44)
[2019-08-14] MEDS ORDERED: TRANEXAMIC ACID INJ/PF 1,000 MG/10 ML SDV IV ONE (12:50)
[2019-08-14 13:26] LABS: HEMATOCRIT 32.1 % (36.0-47.0); HEMOGLOBIN 10.2 g/dL (12.0-15.5); MEAN CORPUSCULAR HEMOGLOBIN 25.1 pg (27.0-33.4); MEAN CORPUSCULAR HGB CONC 31.9 g/dL (32.0-36.0); MEAN CORPUSCULAR VOLUME 79 fl (80-97); PLATELET COUNT 292 10^3/uL (150-450); RED BLOOD COUNT 4.08 10^6/uL (3.72-5.28); RED CELL DISTRIBUTION WIDTH 15.2 % (11.5-14.0); WHITE BLOOD COUNT 15.3 10^3/uL (4.0-10.5)
[2019-08-14] MEDS ORDERED: TRANEXAMIC ACID INJ/PF 1,000 MG/10 ML SDV ONE (13:38)
[2019-08-14] MEDS ORDERED: NORMAL SALINE IV ONE (13:38)
[2019-08-14 13:42] LABS: ABSOLUTE LYMPHOCYTES# (MANUAL) 1.1 10^3/uL (0.5-4.7); ABSOLUTE MONOCYTES # (MANUAL) 0.5 10^3/uL (0.1-1.4); BASOPHILS % (MANUAL) 0 % (0-2); EOSINOPHILS % (MANUAL) 0 % (0-6); LYMPHOCYTES % (MANUAL) 7 % (13-45); MONOCYTES % (MANUAL) 3 % (3-13); SEGMENTED NEUTROPHILS % (MAN) 90 % (42-78); TOTAL CELLS COUNTED 100
[2019-08-14 13:43] LABS: TOXIC GRANULATION 1+; TOXIC VACUOLATION PRESENT
[2019-08-14 13:44] LABS: ANISOCYTOSIS SLIGHT; PLATELET COMMENT ADEQUATE; PLATELET LARGE PRESENT; TEAR DROP CELLS SLIGHT
[2019-08-14] MEDS ORDERED: DIPHENHYDRAMINE HCL 25 MG CAPSULE PO PRN (14:30)
[2019-08-14] MEDS ORDERED: MEASLES,MUMPS&RUBELLA VACC/PF 0.5 ML VIAL SUBCUT PRN (14:30)
[2019-08-14] MEDS ORDERED: BENZOCAINE/MENTHOL AEROSOL SPRAY 56 ML TOP PRN (14:30)
[2019-08-14] MEDS ORDERED: MAGNESIUM HYDROXIDE SUSP 30 ML UDCUP PO PRN (14:30)
[2019-08-14] MEDS ORDERED: GLYCERIN/WITCH HAZEL LEAF 1 EACH MED..WIPE TP PRN (14:30)
[2019-08-14] MEDS ORDERED: PROMETHAZINE HCL 25 MG SUPP.RECT PR PRN (14:30)
[2019-08-14] MEDS ORDERED: ACETAMINOPHEN WITH CODEINE #3 TABLET PO PRN ×2 (14:30)
[2019-08-14] MEDS ORDERED: DIBUCAINE 1% OINTMENT 28 GM TP PRN (14:30)
[2019-08-14] MEDS ORDERED: NA PHOS,M-B/NA PHOS,DI-BA (ADULT) 133 ML ENEMA PR PRN (14:30)
[2019-08-14] MEDS ORDERED: PSEUDOEPHEDRINE HCL 30 MG TABLET PO PRN (14:30)
[2019-08-14] MEDS ORDERED: ZOLPIDEM TARTRATE 5 MG TABLET PO PRN (14:30)
[2019-08-14] MEDS ORDERED: ACETAMINOPHEN 650 MG SUPP.RECT PR PRN (14:30)
[2019-08-14] MEDS ORDERED: DIPH/PERTUSS(ACELL)/TETANUS VAC/PF 0.5 ML SYR (>=10YO) IM PRN (14:30)
[2019-08-14] MEDS ORDERED: PROMETHAZINE HCL 25 MG TABLET PO PRN (14:30)
[2019-08-14] MEDS ORDERED: PROMETHAZINE HCL INJ 25 MG/1 ML VIAL IV PRN (14:30)
[2019-08-14] MEDS ORDERED: AMPICILLIN SOD INJ 1 GM VIAL ONE (14:45)
[2019-08-14] MEDS: AMPICILLIN SOD INJ 1 GM VIAL IV SCH ×3 (14:54→23:17)
--- NOTE | 2019-08-14 17:07 | Delivery Summary ---
Del Sum A-C Datetime Report Generated by CPN: 08/14/2019 17:06 DELIVERY PERSONNEL DELIVERY PERSONNEL: [id number] Delivery Doctor:: Kush Sauceda MD Labor and Delivery Nurse:: Charissa Saavedra RN Labor and Delivery Nurse:: Segundo Atwood RN Speech Lang Path Therapist/EXHIBIT PREPARATOR: Jayla Martin, ST Additional Personnel: : Meghann Medina RN MATERNAL INFORMATION Delivery Anesthesia: None Medications After Delivery: Pitocin Bolus-Please Comment; Methergine 0.2mg IM; Cytotec 1000mcg Per Rectum/Vagina; Other-Please Comment Meds After Delivery Comment: Pitocin 20 units in 1000mL NS; Cytotec 1000mcg WI; 20 units pitocin IM; 1000mg TXA IV (Annotations: Data stored by [facility] on behalf of user) Delivery QBL: 1769 Maternal Complications: Hemorrhage LABOR SUMMARY EDC: 08/10/2019 00:00 No. Babies in Womb: 1 Attempted: No Labor Anesthesia: IV Sedation LABOR INFORMATION Reason for Induction: Premature Rupture of Membranes Onset of Labor: 08/14/2019 01:34 Complete Dilatation: 08/14/2019 12:00 Oxytocin: Augmentation Group B Beta Strep: negative Antibiotics # of Doses: 0 Steroids Given: None Reason Steroids Not Administered: Not Applicable MEMBRANES Membranes Rupture Method: Spontaneous Rupture of Membranes: 08/13/2019 15:15 Length of Rupture (hr): 21.33 Amniotic Fluid Color: Clear Amniotic Fluid Amount: Moderate Amniotic Fluid Odor: Normal STAGES OF LABOR Stage 1 hr: 10 Stage 1 min: 26 Stage 2 hr: 0 Stage 2 min: 35 Stage 3 hr: 2 Stage 3 min: 7 Total Time in Labor hr: 13 Total Time in Labor min: 8 VAGINAL DELIVERY Episiotomy: None Laceration #1: Vaginal Laceration Extension #1: First Degree Laceration Repair: Yes Laceration Repair Note: repaired with 2-0 vicryl Sponge Count Correct: Yes Sharps Count Correct: Yes CSECTION DELIVERY Primary Indication: N/A Secondary Indication: N/A CSection Urgency: N/A CSection Incidence: N/A Labor: N/A Elective: N/A CSection Incision: N/A BABY A INFORMATION Infant Delivery Date/Time: 08/14/2019 12:35 Method of Delivery: Vaginal Nurse Controlled Delivery: No Born in Route : No : N/A Forceps: N/A Vacuum Extraction: N/A Shoulder Dystocia : No PRESENTATION/POSITION BABY A Presentation: Cephalic Cephalic Presentation: Vertex Vertex Position: Right Occipital Anterior Breech Presentation: N/A PLACENTA INFORMATION BABY A Placenta Delivery Time : 08/14/2019 14:42 Placenta Method of Delivery: Spontaneous Placenta Status: Delivered SCORES BABY A Heart Rate 1 min: >100 bpm Resp Effort 1 min: Slow, Irregular Reflex Irritability 1 min: Cough or Sneeze or Pulls Away Muscle Tone 1 min: Active Motion Color 1 min: Blue/Pale Resuscitation Effort 1 min: Tactile Stimulation SCORE 1 MIN: 7 Heart Rate 5 min: >100 bpm Resp Effort 5 min: Good Cry Reflex Irritability 5 min: Cough or Sneeze or Pulls Away Muscle Tone 5 min: Active Motion Color 5 min: Blue/Pale Resuscitation Effort 5 min: Tactile Stimulation SCORE 5 MIN: 8 INFANT INFORMATION BABY A Gestational Age at Delivery: 40.4 Gestational Status: Full Term- 39- 40.6 Weeks Infant Outcome : Liveborn Condition : Stable Sex: Female IDENTIFICATION BABY A Verification Date/Time: 08/14/2019 13:11 ID Band Number: [id number] Mother's Name Verified: Yes RN Verifying Infant: Henrietta Saavedra RN Additional Verifying Personnel: [facility] WEIGHT/LENGTH BABY A Infant Birthweight (gm): 3012 Weight (lb): 6 Weight (oz): 10 Infant Length (in): 20.00 Infant Length (cm): 50.80 CORD INFORMATION BABY A No. Cord Vessels: 3 Nuchal Cord : N/A Cord Blood Taken: Yes-For Storage (Mom's Blood type +) Suction: None ASSESSMENT BABY A Complications: Other Complications- Other: terminal meconium Physical Findings at Delivery: Other Physical Findings- Other: see nursery assessment Infant Respirations: Appears Normal Skin to Skin: Yes Machinist/Machine Builder/ALS Called : No Care By: T.Rai RN Transferred To: Remains with Mother BABY B INFORMATION : N/A SIGNATURES Signature: with User ID: [email or web address] : I was personally available for consultation and serving as supervising physician for the MLP.
[2019-08-14] MEDS: DOCUSATE SODIUM 100 MG CAPSULE PO SCH (17:24)
[2019-08-14] MEDS: FERROUS SULFATE 325 MG TABLET PO SCH (17:24)
[2019-08-14 19:15] LABS: ABSOLUTE BASOPHILS # (AUTO) 0.1 10^3/uL (0.0-0.2); ABSOLUTE MONOCYTES (AUTO) 0.8 10^3/uL (0.1-1.4); ABSOLUTE NEUT (AUTO) 17.3 10^3/uL (1.7-8.2); BASOPHILS % (AUTO) 0.4 % (0-2); HEMATOCRIT 27.2 % (36.0-47.0); HEMOGLOBIN 8.9 g/dL (12.0-15.5); LYMPHOCYTES % (AUTO) 5.3 % (13-45); MEAN CORPUSCULAR HEMOGLOBIN 25.5 pg (27.0-33.4); MEAN CORPUSCULAR HGB CONC 32.9 g/dL (32.0-36.0); MEAN CORPUSCULAR VOLUME 78 fl (80-97); MONOCYTES % (AUTO) 4.2 % (3-13); PLATELET COUNT 275 10^3/uL (150-450); RED BLOOD COUNT 3.49 10^6/uL (3.72-5.28); SEGMENTED NEUTROPHILS % (AUTO) 90.1 % (42-78); TOTAL CELLS COUNTED % (AUTO) 100 %; WHITE BLOOD COUNT 19.2 10^3/uL (4.0-10.5)
[2019-08-14] MEDS: IBUPROFEN 800 MG TABLET PO SCH ×2 (22:25→23:17)
[2019-08-14] MEDS: FAMOTIDINE 20 MG TABLET PO SCH (22:25)
[2019-08-15] MEDS: AMPICILLIN SOD INJ 1 GM VIAL IV SCH ×3 (06:11→19:26)
[2019-08-15] MEDS: IBUPROFEN 800 MG TABLET PO SCH ×4 (06:12→21:25)
[2019-08-15 08:02] LABS: HEMATOCRIT 24.1 % (36.0-47.0); MEAN CORPUSCULAR HEMOGLOBIN 25.1 pg (27.0-33.4); MEAN CORPUSCULAR HGB CONC 32.1 g/dL (32.0-36.0); MEAN CORPUSCULAR VOLUME 78 fl (80-97); PLATELET COUNT 237 10^3/uL (150-450); RED BLOOD COUNT 3.09 10^6/uL (3.72-5.28); RED CELL DISTRIBUTION WIDTH 15.4 % (11.5-14.0); WHITE BLOOD COUNT 13.2 10^3/uL (4.0-10.5)
[2019-08-15 08:07] LABS: HEMOGLOBIN 7.8 g/dL (12.0-15.5)
[2019-08-15] MEDS: SENNOSIDES/DOCUSATE 8.6-50 MG 1 EACH TABLET PO SCH (09:11)
[2019-08-15] MEDS: PRENATAL VITAMIN W DHA CAPSULE PO SCH (09:11)
[2019-08-15] MEDS: FERROUS SULFATE 325 MG TABLET PO SCH ×2 (09:11→19:23)
[2019-08-15] MEDS: FAMOTIDINE 20 MG TABLET PO SCH ×2 (09:11→21:25)
[2019-08-15] MEDS: DOCUSATE SODIUM 100 MG CAPSULE PO SCH ×2 (09:12→19:23)
[2019-08-15] MEDS ORDERED: ACETAMINOPHEN 325 MG TABLET PO PRN (09:26)
[2019-08-15] MEDS ORDERED: DIPHENHYDRAMINE HCL 25 MG CAPSULE PO PRN (09:26)
[2019-08-15] MEDS ORDERED: NORMAL SALINE 250 ML IV PRN ×2 (09:26)
--- NOTE | 2019-08-15 09:35 | PDOC PROGRESS REPORT ---
Subjective-OB Progress Note for:: 08/15/19 Subjective: reports bleeding slowing, pain controlled with current meds. reports dizziness. vs reflect low BP and HR 99-115. agrees to 2 units of PRBC Physical Exam (OB) Vital Signs: Temp Pulse Resp BP Pulse Ox 97.8 F 99 18 97/53 L 100 08/15/19 09:12 08/15/19 09:12 08/15/19 09:12 08/15/19 09:12 08/15/19 09:12 Intake & Output 08/14/19 08/15/19 08/16/19 06:59 06:59 06:59 Weight 105.5 kg - Lochia Lochia Amount: Scant < 10 ml Lochia Color: Rubra/Red - Abdomen Description: Tender, Soft, Round Hernia Present: No Fundal Description: Firm, Midline Fundal Height: u/u - u/2 - Abdominal Distension: No distension - Extremities Lower extremities: Courtney's sign - neg Calf: Normal, Nontender Objective-Diagnostic Laboratory: 08/15/19 07:46 08/13/19 08/14/19 08/14/19 16:59 13:10 19:00 WBC 15.3 H 19.2 H RBC 4.08 3.49 L Hgb 10.2 L 8.9 L Hct 32.1 L 27.2 L MCV 79 L 78 L MCH 25.1 L 25.5 L MCHC 31.9 L 32.9 RDW 15.2 H 15.0 H Plt Count 292 275 Seg Neutrophils % Not Reportable 90.1 H Blood Type B POSITIVE Antibody Screen NEGATIVE 08/15/19 07:46 WBC 13.2 H RBC 3.09 L Hgb 7.8 L Hct 24.1 L MCV 78 L MCH 25.1 L MCHC 32.1 RDW 15.4 H Plt Count 237 Seg Neutrophils % Blood Type Antibody Screen Assessment and Plan(PN) - Assessment and Plan (1) Anemia due to blood loss, acute Is this a current diagnosis for this admission?: Yes (2) Blood transfusion during current hospitalisation Is this a current diagnosis for this admission?: Yes (4) hemorrhage Qualifiers: hemorrhage type: unspecified Qualified Code(s): O72.1 - Other immediate hemorrhage Is this a current diagnosis for this admission?: Yes (5) SROM (spontaneous rupture of membranes) Is this a current diagnosis for this admission?: Yes - Time Spent with Patient Time with patient: Less than 15 minutes Medications reviewed and adjusted accordingly: Yes - Disposition Anticipated Discharge: Home Within: within 48 hours
[2019-08-16] MEDS: IBUPROFEN 800 MG TABLET PO SCH ×2 (05:05→15:03)
[2019-08-16 08:05] LABS: HEMATOCRIT 27.4 % (36.0-47.0); MEAN CORPUSCULAR HEMOGLOBIN 25.5 pg (27.0-33.4); MEAN CORPUSCULAR HGB CONC 32.8 g/dL (32.0-36.0); MEAN CORPUSCULAR VOLUME 78 fl (80-97); PLATELET COUNT 175 10^3/uL (150-450); RED BLOOD COUNT 3.51 10^6/uL (3.72-5.28); RED CELL DISTRIBUTION WIDTH 15.2 % (11.5-14.0); WHITE BLOOD COUNT 8.8 10^3/uL (4.0-10.5)
[2019-08-16 08:39] LABS: ABSOLUTE LYMPHOCYTES# (MANUAL) 2.2 10^3/uL (0.5-4.7); ABSOLUTE MONOCYTES # (MANUAL) 0.3 10^3/uL (0.1-1.4); BAND NEUTROPHILS % (MANUAL) 1 % (3-5); BASOPHILS % (MANUAL) 0 % (0-2); EOSINOPHILS % (MANUAL) 4 % (0-6); LYMPHOCYTES % (MANUAL) 23 % (13-45); MONOCYTES % (MANUAL) 3 % (3-13); SEGMENTED NEUTROPHILS % (MAN) 67 % (42-78); TOTAL CELLS COUNTED 100
[2019-08-16 08:40] LABS: ANISOCYTOSIS SLIGHT; PLATELET COMMENT ADEQUATE; POIKILOCYTOSIS SLIGHT; TEAR DROP CELLS SLIGHT
[2019-08-16] MEDS: FERROUS SULFATE 325 MG TABLET PO SCH (09:34)
[2019-08-16] MEDS: DOCUSATE SODIUM 100 MG CAPSULE PO SCH (09:34)
[2019-08-16] MEDS: SENNOSIDES/DOCUSATE 8.6-50 MG 1 EACH TABLET PO SCH (09:35)
[2019-08-16] MEDS: FAMOTIDINE 20 MG TABLET PO SCH (09:35)
[2019-08-16] MEDS: PRENATAL VITAMIN W DHA CAPSULE PO SCH (09:35)
[2019-08-16 12:31] VITALS: BP 117/61
--- NOTE | 2019-08-16 12:36 | PDOC DISCHARGE SUMMARY ---
Impression - Admit/DC Date/PCP Admission Date/Primary Care Provider: 08/13/19 16:20 AJ TREJO MD Discharge Date: 08/16/19 - PP day #2, doing well today, s/p with [facility] and rec'd 2 untis PRBC. pt states her GM, Aunt, and cousin all have Hx of blood clots. Importance for ambulation discussed, Warning signs of PE reviewed. B+, - Additional Information Resuscitation Status: Full Code Discharge Diet: Regular Discharge Activity: Activity As Tolerated, No Lifting Over 10 Pounds, Pelvic Rest, No tub bath Referrals: [facility] [Provider Group] Prescriptions: Ibuprofen [Motrin 800 mg Tablet] 800 mg PO Q8 #60 tablet Home Medications: Cpigwl33/Iron Fum,Ps/Folic/Dha [Provida Dha Capsule] 90 mg PO DAILY 04/17/19 Albuterol Sulfate [Proair HFA Inhalation Aerosol 8.5 gm MDI] 2 puff IH Q4HP PRN #1 mdi 05/09/19 Ibuprofen [Motrin 800 mg Tablet] 800 mg PO Q8 #60 tablet 08/16/19 HPI Reason(s) for Admission: Onset of Labor Procedures: Ultrasound Intrapartum Procedure(s): Spontaneous Vaginal Delivery Results Laboratory Results: WBC 8.8 10^3/uL (4.0-10.5) 08/16/19 07:36 RBC 3.51 10^6/uL (3.72-5.28) L 08/16/19 07:36 Hgb 9.0 g/dL (12.0-15.5) L 08/16/19 07:36 Hct 27.4 % (36.0-47.0) L 08/16/19 07:36 MCV 78 fl (80-97) L 08/16/19 07:36 MCH 25.5 pg (27.0-33.4) L 08/16/19 07:36 MCHC 32.8 g/dL (32.0-36.0) 08/16/19 07:36 RDW 15.2 % (11.5-14.0) H 08/16/19 07:36 Plt Count 175 10^3/uL (150-450) 08/16/19 07:36 Lymph % (Auto) Not Reportable 08/16/19 07:36 [place] % (Auto) Not Reportable 08/16/19 07:36 Eos % (Auto) Not Reportable 08/16/19 07:36 Baso % (Auto) Not Reportable 08/16/19 07:36 Absolute Neuts (auto) Not Reportable 08/16/19 07:36 Absolute Lymphs (auto) Not Reportable 08/16/19 07:36 Absolute Monos (auto) Not Reportable 08/16/19 07:36 Absolute Eos (auto) Not Reportable 08/16/19 07:36 Absolute Basos (auto) Not Reportable 08/16/19 07:36 Total Counted 100 08/16/19 07:36 Seg Neutrophils % Not Reportable 08/16/19 07:36 Seg Neuts % (Manual) 67 % (42-78) 08/16/19 07:36 Band Neutrophils % 1 % (3-5) L 08/16/19 07:36 Lymphocytes % (Manual) 23 % (13-45) 08/16/19 07:36 Atypical Lymphs % 2 % (0) 08/16/19 07:36 Monocytes % (Manual) 3 % (3-13) 08/16/19 07:36 Eosinophils % (Manual) 4 % (0-6) 08/16/19 07:36 Basophils % (Manual) 0 % (0-2) 08/16/19 07:36 Abs Neuts (Manual) 6.0 10^3/uL (1.7-8.2) 08/16/19 07:36 Abs Lymphs (Manual) 2.2 10^3/uL (0.5-4.7) 08/16/19 07:36 Abs Monocytes (Manual) 0.3 10^3/uL (0.1-1.4) 08/16/19 07:36 Absolute Eos (Manual) 0.4 10^3/uL (0.0-0.6) 08/16/19 07:36 Abs Basophils (Manual) 0.0 10^3/uL (0.0-0.2) 08/16/19 07:36 Toxic Granulation 1+ 08/14/19 13:10 Toxic Vacuolation PRESENT 08/14/19 13:10 Large Platelets PRESENT 08/14/19 13:10 Platelet Comment ADEQUATE 08/16/19 07:36 Poikilocytosis SLIGHT 08/16/19 07:36 Anisocytosis SLIGHT 08/16/19 07:36 Microcytosis SLIGHT 08/16/19 07:36 Tear Drop Cells SLIGHT 08/16/19 07:36 Urine Color STRAW 08/13/19 15:31 Urine Appearance CLEAR 08/13/19 15:31 Urine pH 7.0 (5.0-9.0) 08/13/19 15:31 Ur Specific [place] 1.005 08/13/19 15:31 Urine Protein NEGATIVE mg/dL (NEGATIVE) 08/13/19 15:31 Urine Glucose (UA) NEGATIVE mg/dL (NEGATIVE) 08/13/19 15:31 Urine Ketones NEGATIVE mg/dL (NEGATIVE) 08/13/19 15:31 Urine Blood NEGATIVE (NEGATIVE) 08/13/19 15:31 Urine Nitrite NEGATIVE (NEGATIVE) 08/13/19 15:31 Urine Bilirubin NEGATIVE (NEGATIVE) 08/13/19 15:31 Urine Urobilinogen NEGATIVE mg/dL (<2.0) 08/13/19 15:31 Ur Leukocyte Esterase NEGATIVE (NEGATIVE) 08/13/19 15:31 Urine Ascorbic Acid NEGATIVE (NEGATIVE) 08/13/19 15:31 Urine Opiates Screen NEGATIVE 08/13/19 15:31 Urine Methadone Screen NEGATIVE 08/13/19 15:31 Ur Barbiturates Screen NEGATIVE 08/13/19 15:31 Ur Phencyclidine Scrn NEGATIVE 08/13/19 15:31 Ur Amphetamines Screen NEGATIVE 08/13/19 15:31 U Benzodiazepines Scrn NEGATIVE 08/13/19 15:31 Urine Cocaine Screen NEGATIVE 08/13/19 15:31 U Marijuana (THC) Screen NEGATIVE 08/13/19 15:31 RPR NONREACTIVE (NONREACTIVE) 08/13/19 16:59 Blood Type B POSITIVE 08/13/19 16:59 Blood Type Confirm B POSITIVE 08/13/19 16:59 Antibody Screen NEGATIVE 08/13/19 16:59 Crossmatch See Detail 08/13/19 16:59 Plan Plan of Treatment: d/c to home. pt to go to ER if having SOB, chest pain or pain in calfs, Importance of ambulation reviewed. f/u with [facility] in 4 wks Time Spent: Less than 30 Minutes
== END 2019-08-16 15:10 | disposition home or self-care (01) | DRG 806 ==
LOC: LC 15:24 → EEVIPCON 16:20 → LR 16:20 → 2S 08-14 16:15
PROVIDERS: ADMIT Obstetrics & Gynecology; ATTEND Obstetrics & Gynecology
PROC: 10E0XZZ Delivery of Products of Conception, External Approach (ICD-10-PCS; principal; 2019-08-14)
PROC: 0HQ9XZZ Repair Perineum Skin, External Approach (ICD-10-PCS; 2019-08-14)
PROC: 30233N1 Transfusion of Nonautologous Red Blood Cells into Peripheral Vein, Percutaneous Approach (ICD-10-PCS; 2019-08-15)
DX: O42.92 Full-term premature rupture of membranes, unspecified as to length of time between rupture and onset of labor (principal); O72.1 Other immediate postpartum hemorrhage; Z37.0 Single live birth; D62 Acute posthemorrhagic anemia; F43.10 Post-traumatic stress disorder, unspecified; O99.02 Anemia complicating childbirth; Z3A.40 40 weeks gestation of pregnancy
CPT/HCPCS: 36415; 36430; 80307; 81005; 85025; 85027; 86592; 86850; 86900; 86901; 86920; J0131; J0290; J2210; J2270; J2590; J3490; P9016

== ENCOUNTER 2019-08-21 20:10 | Emergency (ER) | payer MEDICARE, MEDICAID ==
[2019-08-21 20:51] LABS: ABSOLUTE EOSINOPHILS # (AUTO) 0.1 10^3/uL (0.0-0.6); ABSOLUTE LYMPHOCYTES (AUTO) 1.4 10^3/uL (0.5-4.7); ABSOLUTE MONOCYTES (AUTO) 0.4 10^3/uL (0.1-1.4); ABSOLUTE NEUT (AUTO) 4.3 10^3/uL (1.7-8.2); BASOPHILS % (AUTO) 0.4 % (0-2); EOSINOPHILS % (AUTO) 1.1 % (0-6); HEMATOCRIT 32.1 % (36.0-47.0); HEMOGLOBIN 10.3 g/dL (12.0-15.5); LYMPHOCYTES % (AUTO) 22.6 % (13-45); MEAN CORPUSCULAR HEMOGLOBIN 25.2 pg (27.0-33.4); MEAN CORPUSCULAR HGB CONC 32.2 g/dL (32.0-36.0); MEAN CORPUSCULAR VOLUME 78 fl (80-97); MONOCYTES % (AUTO) 6.4 % (3-13); PLATELET COUNT 359 10^3/uL (150-450); RED BLOOD COUNT 4.09 10^6/uL (3.72-5.28); RED CELL DISTRIBUTION WIDTH 14.9 % (11.5-14.0); SEGMENTED NEUTROPHILS % (AUTO) 69.5 % (42-78); TOTAL CELLS COUNTED % (AUTO) 100 %; WHITE BLOOD COUNT 6.1 10^3/uL (4.0-10.5)
[2019-08-21 20:58] LABS: ALBUMIN 3.2 g/dL (3.5-5.0); ALKALINE PHOSPHATASE 67 U/L (38-126); ANION GAP 5 (5-19); ASPARTATE AMINO TRANSFERASE 28 U/L (14-36); BILIRUBIN,TOTAL 0.3 mg/dL (0.2-1.3); BLOOD UREA NITROGEN 9 mg/dL (7-20); CALCIUM 9.2 mg/dL (8.4-10.2); CARBON DIOXIDE 28 mmol/L (22-30); CHLORIDE 104 mmol/L (98-107); CREATINE KINASE 93 U/L (30-135); GLUCOSE 77 mg/dL (75-110); POTASSIUM 4.2 mmol/L (3.6-5.0); TOTAL PROTEIN 6.4 g/dL (6.3-8.2)
[2019-08-21 21:10] LABS: CREATINE KINASE MB 1.72 ng/mL (<4.55)
[2019-08-21 21:11] LABS: TROPONIN I < 0.012 ng/mL
[2019-08-21] MEDS ORDERED: NORMAL SALINE 1000 ML 1,000 ML IV ONE (23:42)
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
--- NOTE | 2019-08-22 01:42 | RADIOLOGY REPORT (SQ) ---
EXAM DESCRIPTION: CT CHEST ANGIOGRAPHY WITHOUT THEN WITH IV CONTRAST COMPLETED DATE/TME: 08/21/2019 23:40 CLINICAL HISTORY: 24 years, Female, syncope , dyspnea COMPARISON: None. TECHNIQUE: Images stored on PACS. All CT scanners at this facility use dose modulation, iterative reconstruction, and/or weight based dosing when appropriate to reduce radiation dose to as low as reasonably achievable (ALARA). [facility]: Dose Right [facility]: CareDose [facility]: Dose Right [facility]: Teradose 4D [facility]: [employer] LIMITATIONS: None. FINDINGS: Artifact from persistent venous opacification and left arm injection. No evidence of pulmonary embolus. There is an apparent filling defect appreciated in an artery to superior segment right lower lobe which appears nonanatomic. The aorta is of normal caliber. A right-sided arch is incidentally noted. The heart is top normal. No pericardial fluid. No bulky mediastinal adenopathy. Thyroid is homogeneous. The lungs are clear. No effusion or pneumothorax. Visualized abdominal contents demonstrate ill-defined hyperenhancing lesion right lobe of the liver estimated at 6 cm in greatest dimension, not well seen. IMPRESSION: No evidence of pulmonary embolus. Lungs grossly clear. Heterogeneously hyperenhancing lesion right lobe of the liver centered in segment VIII. This is indeterminate. Adenoma or hemangioma or primary diagnostic considerations. If not a known finding, elective outpatient MRI in follow-up with without contrast is advised TECHNICAL DOCUMENTATION: Quality ID # 436: Final reports with documentation of one or more dose reduction techniques (e.g., Automated exposure control, adjustment of the mA and/or kV according to patient size, use of iterative reconstruction technique) copyright 2011 [employer]- All Rights Reserved
--- NOTE | 2019-08-22 02:01 | RADIOLOGY REPORT (SQ) ---
EXAM DESCRIPTION: US PELVIS COMPLETED DATE/TME: 08/21/2019 23:42 CLINICAL HISTORY: 24 years, Female, bleeding; r/o retained POC COMPARISON: None. TECHNIQUE: Transabdominal. 44 images LIMITATIONS: None. FINDINGS: Uterus measures 15.0 x 6.3 x 9.9 cm. Endometrial stripe complex is thickened measuring 2.7 cm. There is internal vascularity. The cervix measures 3.2 cm. There does appear to be fluid/debris within the cervix. Ovaries are not visualized. No free fluid. IMPRESSION: Prominent heterogeneous vascular endometrial stripe complex. Presumed retained products copyright 2010 [employer]- All Rights Reserved
[2019-08-22 02:04] LABS: APPEARANCE,URINE CLOUDY; BILIRUBIN,URINE NEGATIVE (NEGATIVE); COLOR,URINE YELLOW; GLUCOSE, URINE NEGATIVE (NEGATIVE); KETONES,URINE NEGATIVE (NEGATIVE); LEUKOCYTE ESTERASE,URINE LARGE (NEGATIVE); NITRITE,URINE NEGATIVE (NEGATIVE); PROTEIN,URINE 100 mg/dL (NEGATIVE); URINE SPECIFIC GRAVITY 1.015; UROBILINOGEN,URINE NEGATIVE mg/dL (<2.0)
[2019-08-22 02:27] VITALS: BP 120/82
--- NOTE | 2019-08-22 09:48 | EKG REPORT ---
SEVERITY:- BORDERLINE ECG - SINUS RHYTHM BORDERLINE Q WAVES IN INFERIOR LEADS INFERIOR Q WAVES, PROBABLY NORMAL VARIATION : Confirmed by: Austin Murrieta MD 22-Aug-2019 09:47:15
== END 2019-08-22 02:28 | disposition home or self-care (01) ==
LOC: ER 20:10 → EEVIPCON 20:10 → ER 08-22 02:28
DX: O90.89 Other complications of the puerperium, not elsewhere classified (principal); R55 Syncope and collapse; R42 Dizziness and giddiness; O72.2 Delayed and secondary postpartum hemorrhage; Z82.49 Family history of ischemic heart disease and other diseases of the circulatory system
CPT/HCPCS: 93005; 99284; 96360; 36415; 82553; 82550; 85025; 80053; 81001; 84484; 76856; 71275; 93010; J7030

== ENCOUNTER → 2020-05-26 | Outpatient (CLI) | payer MEDICARE, MEDICAID ==
--- NOTE | 2020-05-26 14:21 | WOMENS IMAGING REPORT ---
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 TECHNIQUE: Dynamic and static nicole-scale images acquired of the thyroid gland. Selected additional c olor/power Doppler images recorded. All images stored to PACS. LIMITATIONS: None. FINDINGS: RIGHT LOBE: Normal size. Homogeneous echotexture. No cystic or solid masses. LEFT LOBE: Normal size. Homogeneous echotexture. No cystic or solid masses. ISTHMUS: Normal size. Homogeneous echotexture. Small 2 x 2 x 2 mm cyst is noted in the isthmus. OTHER: No other significant finding. IMPRESSION: NORMAL THYROID ULTRASOUND. TECHNICAL DOCUMENTATION: JOB ID: [id number] 2010 [employer]- All Rights Reserved Reading location - IP/workstation name: [email or web address]
== END ==
LOC: WI 13:40
PROVIDERS: ATTEND Nurse Practitioner Family
DX: E04.9 Nontoxic goiter, unspecified (principal)
CPT/HCPCS: 76536

== ENCOUNTER → 2020-06-23 | Outpatient (CLI) | payer MEDICARE, MEDICAID ==
--- NOTE | 2020-06-23 16:55 | RADIOLOGY REPORT (SQ) ---
EXAM DESCRIPTION: L SPINE WHOLE IMAGES COMPLETED DATE/TIME: 06/23/2020 4:34 pm REASON FOR STUDY: (M54.5)LOW BACK PAIN M54.5 LOW BACK PAIN COMPARISON: None. NUMBER OF VIEWS: Five views including obliques. TECHNIQUE: AP, lateral, oblique, and sacral radiographic images acquired of the lumbar spine. LIMITATIONS: None. FINDINGS: MINERALIZATION: Normal. SEGMENTATION: 5 [id number] lumbar vertebral bodies. ALIGNMENT: Normal. VERTEBRAE: Maintained height. No fracture or worrisome bone lesion. DISCS: Preserved height. No significant osteophytes or end plate irregularity. POSTERIOR ELEMENTS: Pedicles and facets are intact. No pars defect or posterior arch defects. HARDWARE: None in the spine. PARASPINAL SOFT TISSUES: Normal. PELVIS: Intact as visualized. No fractures or worrisome bone lesions. SI joints intact. OTHER: No other significant finding. IMPRESSION: NORMAL 5 VIEW LUMBAR SPINE. TECHNICAL DOCUMENTATION: JOB ID: [id number] 2010 [email or web address]- All Rights Reserved Reading location - IP/workstation name: [email or web address]
== END ==
LOC: RAD 16:18
PROVIDERS: ATTEND Nurse Practitioner Family
DX: M54.5 Low back pain (principal)
CPT/HCPCS: 72110